=== PATIENT | male | born 1965 | race Hispanic/Latino ===

== ENCOUNTER 2018-02-10 09:50 | Emergency (ER) | payer BC | END 2018-02-10 11:00 | disposition home or self-care (01) | LOC: EDH 09:50 | DX: S61.211A Laceration without foreign body of left index finger without damage to nail, initial encounter (principal); E78.5 Hyperlipidemia, unspecified; W26.0XXA Contact with knife, initial encounter; Y93.89 Activity, other specified; Y92.098 Other place in other non-institutional residence as the place of occurrence of the external cause; Y99.8 Other external cause status | CPT/HCPCS: 73130 ==

== ENCOUNTER → 2025-04-15 | Outpatient (CLI) | payer OTHER ==
--- NOTE | 2025-04-16 08:33 | HMCIMG ---
EXAM: CT Cardiac calcium scoring. CLINICAL HISTORY: CAD screening. TECHNIQUE: Thin collimated axial CT cardiac images were obtained. A CT scan is done according to ALARA (As Low As Reasonably Achievable). CONTRAST: None. COMPARISON: None provided. FINDINGS: Calcium Score: VESSEL Number of lesions Volume mm3 Equi. Mass/mg Calcium score LM 0 00.00 00.00 00.00 LAD 3 2.7 --.-- 1.5 LCX 1 1.5 --.-- 0.6 RCA 8 2.0 --.-- 0.8 Total 12 6.1 --.-- 2.9 IMPRESSION: The calcium score is 2.9. This places the patient below 25th percentile in comparison to a group of patients asymptomatic for coronary artery disease with the same age and gender. This means <25 % of males aged 60-64 have a calcium score that is lower than the patient's /Solo
== END | disposition home or self-care (01) ==
LOC: RAH 12:52
PROVIDERS: ATTEND Family Medicine
DX: Z13.6 Encounter for screening for cardiovascular disorders (principal); I25.10 Atherosclerotic heart disease of native coronary artery without angina pectoris
CPT/HCPCS: 75571